=== PATIENT | male | born 1990 | race African-American/Black ===

== ENCOUNTER 2018-10-28 16:20 | Emergency (ER) | payer SELFPAY ==
[2018-10-28] MEDS ORDERED: Sodium Chloride 0.9% 2.5 ML Syringe FLUSH PRN (16:37)
[2018-10-28] MEDS ORDERED: Sodium Chloride 0.9% 10 ML Syringe FLUSH PRN (16:37)
[2018-10-28] MEDS ORDERED: Midazolam 1 MG/ML 2 ML SDV ONE (16:38)
[2018-10-28] MEDS ORDERED: fentaNYL 100 MCG/2 ML SDV ONE (16:38)
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
[2018-10-28] MEDS ORDERED: Lidocaine 1% with EPINEPHrine 1:100,000 20 ML MDV ONE (16:43)
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
--- NOTE | 2018-10-28 17:03 | PCM.PREANE ---
Preanesthetic Assessment - Anesthesia/Transfusion/Family Hx Anesthesia History: Prior Anesthesia Without Reaction Transfusion History: No Prior Transfusion(s) - Review of Systems General: No Symptoms Pulmonary: Shortness of Breath Cardiovascular: No Symptoms Gastrointestinal: No Symptoms Neurological: No Symptoms Other: Reports: Anxiety - Physical Assessment NPO Status Date: 10/28/18 NPO Status Time: 15:30 ASA Class: 2E Mental Status: Alert & Oriented x3 Airway Class: Mallampati = 1 Dentition: Reports: Normal Dentition Thyro-Mental Finger Breadths: 3 Mouth Opening Finger Breadths: 3 ROM/Head Extension: Full Lungs: Clear to Auscultation, Normal Respiratory Effort Cardiovascular: Regular Rate, Regular Rhythm - Allergies Allergies/Adverse Reactions: Allergies Allergy/AdvReac Type Severity Reaction Status Date / Time No Known Allergies Allergy Verified 08/03/18 13:55 - Acknowledgements Anesthesia Type Planned: MAC Pt an Appropriate Candidate for the Planned Anesthesia: Yes Alternatives and Risks of Anesthesia Discussed w Pt/Guardian: Yes Pt/Guardian Understands and Agrees with Anesthesia Plan: Yes PreAnesthesia Questionnaire HEENT History: Reports: None Cardiovascular History: Reports: None Respiratory History: Reports: Other (See Below) (Smoker) Gastrointestinal History: Reports: None Genitourinary History: Reports: None Musculoskeletal History: Reports: None Neurological History: Reports: None Psychiatric History: Reports: None Endocrine/Metabolic History: Reports: None Hematologic History: Reports: None Dermatologic History: Reports: None - Infectious Disease History Infectious Disease History: Reports: Chicken Pox - Past Surgical History HEENT Surgical History: Reports: None Cardiovascular Surgical History: Reports: None - SUBSTANCE USE Smoking Status *Q: Current Every Day Smoker Recreational Drug Type: Reports: Cocaine (Last use 10/27/18), Marijuana/Hashish ( Last use 10/28/18) - HOME MEDS Home Medications: Home Meds . [No Known Home Meds] 07/29/16 [History] - CURRENT (IN HOUSE) MEDS Current Meds: Current Medications Sodium Chloride (Saline Flush) 10 ml FLUSH ASDIRECTED PRN PRN Reason: Keep Vein Open Sodium Chloride (Saline Flush) 2.5 ml FLUSH ASDIRECTED PRN PRN Reason: Keep Vein Open Discontinued Medications Fentanyl (Sublimaze) Confirm Administered Dose 200 mcg .ROUTE .STK-MED ONE Stop: 10/28/18 16:39 Lidocaine/Epinephrine (Xylocaine 1% With Epinephrine 1:100,000) Confirm Administered Dose 40 ml .ROUTE .STK-MED ONE Stop: 10/28/18 16:44 Midazolam HCl (Versed 1 Mg/Ml) Confirm Administered Dose 2 mg .ROUTE .STK-MED ONE Stop: 10/28/18 16:39
[2018-10-28] MEDS ORDERED: Bacitracin Oint 1 GM U/D Packet ONE (17:05)
--- NOTE | 2018-10-28 17:05 | PCM.SN ---
- Free Text/Narrative Note: At the bedside with Dr Contreras for chest tube placement. Patient is very agitated and screaming in pain. Brief review of systems; patient asking for relief. Versed 2mg IV Fentanyl 200mcg IV given over the course of the chest tube placement. Vital signs 1637 - 176/94, 69, 98% on NC at 4LPM, RR - 42 1641 - 147/84, 87, 100% on NC at 4LPM, RR 36 1646 - 155/89, 95, 100% on NC at 4LPM, RR 30 1651 - 151/91, 89, 100% on NC at 4LPM, RR 26 1656 - 145/94, 62, 100% on NC at 4LPM, RR 24 1701 - 150/103, 79, 100% on NC at 4LPM, RR 20 Pt tolerated sedation and placement well. VSS at this time, report given to GATE GUARD.
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
[2018-10-28] MEDS ORDERED: ceFAZolin 1 GM Vial IM ONE (18:14)
[2018-10-28] MEDS ORDERED: ceFAZolin 1 GM in Premix Bag 1 BAG IV ONE (18:17)
[2018-10-28] MEDS ORDERED: ceFAZolin 2 GM in Premix Bag 1 BAG IV ONE (18:18)
[2018-10-28] MEDS ORDERED: Sodium Chloride 0.9% 1,000 ML IV SCH (18:45)
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
[2018-10-28 20:01] VITALS: BP 136/91
[2018-10-28] MEDS ORDERED: Bacitracin Oint 28.35 GM Tube TOP SCH (22:00)
== END 2018-10-28 18:46 ==
LOC: MW.ED 16:20
DX: S21.311A Laceration without foreign body of right front wall of thorax with penetration into thoracic cavity, initial encounter (principal); J93.9 Pneumothorax, unspecified; X58.XXXA Exposure to other specified factors, initial encounter
CPT/HCPCS: 32551; 71045; 96374; 99291; 99292; G0390; J0690; J7040

== ENCOUNTER 2018-11-02 22:44 | Observation (INO) | payer MEDICAID ==
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
--- NOTE | 2018-11-02 23:44 | CR ---
INDICATION: Chest pressure TECHNIQUE: Chest 2 views. COMPARISON: October 28, 2018 FINDINGS: Interval removal of right-sided chest tube. There is no pneumothorax or pleural fluid. Lungs are clear. Normal cardiomediastinal silhouette. No acute osseous abnormality. IMPRESSION: No sign of acute abnormality. Dictated by Deidra Chery MD @ Nov 02 2018 11:44PM Signed by Dr. Deidra Chery @ Nov 02 2018 11:44PM
[2018-11-02] MEDS ORDERED: Sodium Chloride 0.9% 1,000 ML IV SCH (23:45)
--- NOTE | 2018-11-02 23:49 | CR ---
Indication: Chest pressure, recent pneumothorax Technique: Chest 1 view, expiratory view Comparison: Correlation with frontal chest radiograph performed in inspiration at the same time Findings/Impression: There is a moderate-sized right pneumothorax without mediastinal shift. Remainder of the exam is unchanged. These findings were discussed with Dr. Reis at 11:45 p.m. on November 02, 2018. Dictated by Deidra Chery MD @ Nov 02 2018 11:46PM Signed by Dr. Deidra Chery @ Nov 02 2018 11:46PM
[2018-11-02] MEDS ORDERED: LORazepam 2 MG/ML SDV IVPUSH ONE (23:51)
[2018-11-03] MEDS: Sodium Chloride 0.9% 1,000 ML IV SCH ×2 (00:08→08:00)
[2018-11-03] MEDS ORDERED: Sodium Chloride 0.9% 2.5 ML Syringe FLUSH PRN (00:15)
[2018-11-03] MEDS ORDERED: HYDROmorphone 2 MG/ML SDV IVPUSH PRN (00:15)
[2018-11-03] MEDS ORDERED: Sodium Chloride 0.9% 10 ML Syringe FLUSH PRN (00:15)
[2018-11-03] MEDS ORDERED: Sodium Chloride 0.9% 1,000 ML IV SCH (00:15)
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
[2018-11-03] MEDS ORDERED: Ondansetron 4 MG/2 ML SDV IVPUSH PRN (00:35)
[2018-11-03] MEDS ORDERED: HYDROmorphone 1 MG/ML Syringe ONE (01:18)
[2018-11-03] MEDS: HYDROmorphone 1 MG/ML Syringe IVPUSH PRN ×2 (01:41→09:31)
--- NOTE | 2018-11-03 08:08 | CR ---
INDICATION: Follow-up pneumothorax. COMPARISON: PA expiration chest dated 11/02/2018. TECHNIQUE: Portable AP erect chest performed at 7:30 a.m.. FINDINGS: The lungs are clear. There has been resolution of the small right-sided pneumothorax. The heart, mediastinum and pulmonary vessels are of normal size. There is no evidence of pleural fluid. IMPRESSION: Resolution of right-sided pneumothorax. Dictated by Sudhakar Pimentel MD @ Nov 03 2018 8:07AM Signed by Dr. Sudhakar Pimentel @ Nov 03 2018 8:07AM
--- NOTE | 2018-11-03 09:28 | CT ---
EXAMINATION: CT chest without contrast HISTORY: Recurrent pneumothorax COMPARISON: Chest radiograph from the same day TECHNIQUE: Axial CT imaging obtained through the chest without contrast. Coronal and sagittal reconstructions obtained. FINDINGS: There is a small right sided pneumothorax. Mild atelectasis noted within the lung bases. Otherwise the lungs are clear without focal consolidation. Tiny intrafissural nodule along the medial aspect of the right minor fissure. The heart is normal in size without a pericardial effusion. No mediastinal or axillary lymphadenopathy. No hilar fullness. No visualized bulla or emphysematous changes. Central airways are clear. Thoracic aorta is normal caliber. The visualized images of the upper abdomen appear normal. No suspicious osseous abnormalities identified. IMPRESSION: 1. Small right pneumothorax.
--- NOTE | 2018-11-03 09:40 | PCM.PN ---
- General Info Date of Service: 11/03/18 Functional Status: Reports: Pain Controlled, Other (No new chest pain, SOB, and vitals stable overnight. ) - Review of Systems General: Reports: No Symptoms HEENT: Reports: No Symptoms Pulmonary: Reports: No Symptoms Cardiovascular: Reports: No Symptoms Gastrointestinal: Reports: No Symptoms Genitourinary: Reports: No Symptoms Musculoskeletal: Reports: No Symptoms - Patient Data Vitals - Most Recent: Last Vital Signs Temp 35.9 C 11/03/18 04:00 Pulse 77 11/03/18 04:00 Resp 18 11/03/18 04:00 BP 125/62 11/03/18 04:00 Pulse Ox 100 11/03/18 04:00 Weight - Most Recent: 86 kg Med Orders - Current: Current Medications Hydromorphone HCl (Dilaudid) 0.5 mg IVPUSH Q1H PRN PRN Reason: Pain Last Admin: 11/03/18 09:31 Dose: 0.5 mg Sodium Chloride (Normal Saline) 1,000 mls @ 125 mls/hr IV ASDIRECTED [facility] Last Admin: 11/03/18 08:00 Dose: 125 mls/hr Sodium Chloride (Normal Saline) 1,000 mls @ 125 mls/hr IV ASDIRECTED [facility] Ondansetron HCl (Zofran) 4 mg IVPUSH Q6H PRN PRN Reason: Nausea/Vomiting Sodium Chloride (Saline Flush) 10 ml FLUSH ASDIRECTED PRN PRN Reason: Keep Vein Open Sodium Chloride (Saline Flush) 2.5 ml FLUSH ASDIRECTED PRN PRN Reason: Keep Vein Open Last Admin: 11/03/18 09:35 Dose: 2.5 ml Discontinued Medications Hydromorphone HCl (Dilaudid) 0.5 mg IVPUSH Q1H PRN PRN Reason: Pain (severe 7-10) Hydromorphone HCl (Dilaudid) Confirm Administered Dose 1 mg .ROUTE .STK-MED ONE Stop: 11/03/18 01:19 Last Admin: 11/03/18 01:41 Dose: Not Given Sodium Chloride (Normal Saline) 1,000 mls @ 999 mls/hr IV ASDIRECTED IRENE Stop: 11/03/18 00:04 Lorazepam (Ativan) 1 mg IVPUSH ONETIME ONE Stop: 11/02/18 23:52 Last Admin: 11/03/18 00:04 Dose: 1 mg - Exam Quality Assessment: Supplemental Oxygen General: Alert, Oriented HEENT: Pupils Equal, Pupils Reactive Neck: Supple Lungs: Normal Respiratory Effort, Other (mild crackles throughout the right side ) Cardiovascular: Regular Rate, Regular Rhythm - Problem List & Annotations (1) Pneumothorax SNOMED Code(s): 17621392 Code(s): J93.9 - PNEUMOTHORAX, UNSPECIFIED Status: Acute Current Visit: No - Problem List Review Problem List Initiated/Reviewed/Updated: Yes - My Orders Last 24 Hours: My Active Orders 11/03/18 Chest Special 1V [CR] Routine 11/03/18 00:15 Patient Status [ADT] Routine Notify Provider Vital Signs [RC] .PRN Oxygen Therapy [RC] PRN Up ad Elke [RC] ASDIRECTED Vital Signs [RC] Q4H Sodium Chloride 0.9% [Normal Saline] 1,000 ml IV ASDIRECTED Sodium Chloride 0.9% [Saline Flush] 10 ml FLUSH ASDIRECTED PRN Sodium Chloride 0.9% [Saline Flush] 2.5 ml FLUSH ASDIRECTED PRN Peripheral IV Insertion Adult [OM.PC] Urgent Resuscitation Status Routine 11/03/18 00:20 Cardiac Monitoring [RC] Q8H Overnight Pulse Oximetry [RC] Click to Edit Telemetry Monitoring [Cardiac Monitoring] [RC] . DIRECTED Pulse Oximetry Continuous Monitoring [OM.PC] Routine 11/03/18 00:23 Communication Order [RC] DAILY 11/03/18 00:35 Ondansetron [Zofran] 4 mg IVPUSH Q6H PRN 11/03/18 01:27 HYDROmorphone [Dilaudid] 0.5 mg IVPUSH Q1H PRN 11/03/18 Breakfast NPO Now [Nothing per Oral Now Diet] [DIET] - Plan Plan:: The patient had a CXR this morning that showed complete resolution of the pneumothorax but I thought I could still see an apical pneumothorax. A chest CT was doen that shows a small right apical pneumothorax. It appears to be smaller than what I saw on CXR last evening. Will keep on non-rebreather today. Patient can eat, drink regular diet. He should be on satellite project site monitor and pulse ox for the day at least to make sure he continues to stay stable. Will reassess tonight. Likely home tomorrow morning if stable.
[2018-11-03] MEDS: Acetaminophen/HYDROcodone 325-5 MG Tab PO PRN ×2 (13:31→19:39)
--- NOTE | 2018-11-04 08:36 | CR ---
EXAMINATION: Portable chest radiograph. HISTORY: Pneumothorax. FINDINGS: The trachea is midline. The cardiomediastinal silhouette is within normal limits. No significant residual pneumothorax is noted. The lungs are otherwise clear. No pleural effusion. Osseous structures appear unremarkable. IMPRESSION: No significant residual pneumothorax identified on this portable radiograph.
[2018-11-04 08:57] VITALS: BP 115/65
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
--- NOTE | 2018-11-04 15:32 | CR ---
INDICATION: Evaluate pneumothorax COMPARISON: PA inspiratory chest performed at 7:30 a.m. and portable chest dated 11/02/2018 at 10:54 p.m. TECHNIQUE: Portable AP erect chest performed during expiration at 7:31 a.m. FINDINGS: On expiration there is evidence of a small right apical pneumothorax which was not apparent on the inspiration view. The visceral pleural line parallels the posterior right 4th rib. The size of the pneumothorax has decreased from the exam performed 1 day prior on 11/02/2018. The lungs are clear. The heart, mediastinum and pulmonary vessels are of normal size. There is no evidence of pleural fluid. IMPRESSION: Slight reduction in size of the right apical pneumothorax which is apparent on the expiratory view. Dictated by Sudhakar Pimentel MD @ Nov 03 2018 8:07AM Signed by Dr. Sudhakar Pimentel @ Nov 04 2018 3:31PM
== END 2018-11-04 10:45 | disposition home or self-care (01) ==
LOC: MW.ED 22:44 → MW.MS 23:51
PROVIDERS: ADMIT Surgery; ATTEND Surgery
DX: S27.0XXA Traumatic pneumothorax, initial encounter (principal); F17.200 Nicotine dependence, unspecified, uncomplicated; W22.8XXA Striking against or struck by other objects, initial encounter
CPT/HCPCS: 71045; 71250; 96361; 96374; 96375; 96376; 99285; A9270; G0378; J1170; J2060; J7040; 99283

== ENCOUNTER 2019-07-11 03:15 | Emergency (ER) | payer MEDICAID, OTHER ==
[2019-07-11] MEDS ORDERED: Etomidate 2 MG/ML 20 ML SDV IVPUSH ONE (03:27)
[2019-07-11] MEDS ORDERED: Rocuronium 100 MG/10 ML MDV IVPUSH ONE (03:27)
[2019-07-11] MEDS ORDERED: Sodium Chloride 0.9% 10 ML Syringe FLUSH ONE (03:27)
[2019-07-11] MEDS ORDERED: Succinylcholine 200 MG/10 ML MDV IV ONE (03:27)
[2019-07-11] MEDS ORDERED: cefTRIAXone 1 GM in Premix Bag 1 BAG IV ONE (03:33)
[2019-07-11] MEDS ORDERED: Diphtheria,Pertussis(Acell),Tetanus Vaccine 0.5 ML Syringe IM ONE (03:33)
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
[2019-07-11] MEDS ORDERED: Sodium Chloride 0.9% 1,000 ML IV SCH (03:45)
[2019-07-11] MEDS ORDERED: Pantoprazole 40 MG in Sodium Chloride 0.9% 10 ML IV SCH (03:45)
[2019-07-11] MEDS ORDERED: fentaNYL 100 MCG/2 ML SDV ONE (03:47)
[2019-07-11] MEDS: Tranexamic Acid 1,000 MG in Sodium Chloride 0.9% 100 ML IV ONE ×2 (03:58→07:15)
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
[2019-07-11 04:18] LABS: BLOOD UREA NITROGEN,BUN 12 mg/dL (7.0-18.0); CARBON DIOXIDE,CO2 21.8 mmol/L (21.0-32.0); CHLORIDE,CL 102 mmol/L (98-107); GLUCOSE RANDOM 171 mg/dL (74-106); POTASSIUM,K 2.8 mmol/L (3.5-5.1); SODIUM,NA 141 mmol/L (136-148)
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
[2019-07-11] MEDS ORDERED: fentaNYL 50 MCG/ML SDV IVPUSH ONE ×2 (05:45→05:50)
[2019-07-11 06:55] VITALS: BP 60/34; PULSE 72
[2019-07-11] MEDS ORDERED: Lactated Ringers 1,000 ML IV ONE (07:23)
--- NOTE | 2019-07-12 12:14 | CR ---
INDICATION: Intubation TECHNIQUE: Chest 1 views COMPARISON: Chest x-ray 07/11/2019 FINDINGS: Cardiovascular and mediastinum: Heart size and vasculature are normal in caliber and appearance. Lungs and pleural spaces: Lungs are clear. No sign of infiltrate or mass. No sign of pleural effusion. No pneumothorax. Bones and soft tissues: Endotracheal tube at the midtrachea level. IMPRESSION: Interval intubation with endotracheal tube tip at the midtrachea level. Dictated by Rafi Quintanilla MD @ Jul 11 2019 3:56AM Signed by: Rafi Quintanilla MD @07/11/2019 3:57:43 AM (Electronic Signature) [facility]
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
== END 2019-07-11 04:41 ==
LOC: MW.ED 03:26
DX: S41.012A Laceration without foreign body of left shoulder, initial encounter (principal); S01.21XA Laceration without foreign body of nose, initial encounter; S01.412A Laceration without foreign body of left cheek and temporomandibular area, initial encounter; S41.111A Laceration without foreign body of right upper arm, initial encounter; R57.9 Shock, unspecified; Z23 Encounter for immunization; W26.0XXA Contact with knife, initial encounter; Y92.89 Other specified places as the place of occurrence of the external cause
CPT/HCPCS: 31500; 36415; 36430; 51702; 71045; 80053; 80305; 80320; 81001; 85025; 86850; 86900; 86901; 86920; 86921; 86922; 90471; 90715; 93005; 96361; 96374; 99291; 99292; C9113; J0330; J0696; J2704; J3010; J3490; J7030; J7040; J7050; J7120; P9016; G0480

== ENCOUNTER 2019-07-23 09:12 | Emergency (ER) | payer SELFPAY ==
[2019-07-23 09:30] VITALS: BP 139/78; PULSE 94
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
== END 2019-07-23 10:21 | disposition home or self-care (01) ==
LOC: MW.ED 09:12
DX: S41.111D Laceration without foreign body of right upper arm, subsequent encounter (principal); W45.8XXD Other foreign body or object entering through skin, subsequent encounter
CPT/HCPCS: 99282

== ENCOUNTER 2019-08-06 14:00 | Emergency (ER) | payer SELFPAY ==
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
[2019-08-06 16:15] VITALS: BP 120/78; PULSE 89
== END 2019-08-06 16:00 | disposition home or self-care (01) ==
LOC: MW.ED 14:00
DX: Z48.817 Encounter for surgical aftercare following surgery on the skin and subcutaneous tissue (principal); F17.210 Nicotine dependence, cigarettes, uncomplicated
CPT/HCPCS: 99281

== ENCOUNTER 2019-10-21 09:05 | Emergency (ER) | payer SELFPAY ==
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
[2019-10-21 09:46] VITALS: BP 123/80; PULSE 82
== END 2019-10-21 09:45 | disposition home or self-care (01) ==
LOC: MW.ED 09:05
DX: Z00.00 Encounter for general adult medical examination without abnormal findings (principal)
CPT/HCPCS: 99282

== ENCOUNTER 2020-03-16 01:58 | Emergency (ER) | payer SELFPAY ==
[2020-03-16 02:13] VITALS: BP 135/84; PULSE 96
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
== END 2020-03-16 02:20 ==
LOC: MW.ED 01:58
DX: G89.29 Other chronic pain (principal); M79.621 Pain in right upper arm
CPT/HCPCS: 99283

== ENCOUNTER 2020-05-03 21:36 | Emergency (ER) | payer SELFPAY ==
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
[2020-05-03 21:48] VITALS: BP 121/79; PULSE 86
== END 2020-05-03 21:55 ==
LOC: MW.ED 21:36
DX: Z02.89 Encounter for other administrative examinations (principal)
CPT/HCPCS: 99282; 99283

== ENCOUNTER 2020-10-18 16:23 | Emergency (ER) | payer MEDICAID ==
[2020-10-18 16:37] VITALS: BP 127/80; PULSE 72
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
--- NOTE | 2020-10-18 17:58 | CR ---
Indication: Hand pain Technique: Four views of the right hand Comparison: None Findings/Impression: 1. There is fracture deformity of the distal left 5th metacarpal, with volar angulation of the metacarpal head. 2. The bones are somewhat demineralized, suggesting osteopenia. Dictated by Luz Fam MD @ Oct 18 2020 5:53PM Signed by Dr. uLz Fam @ Oct 18 2020 5:58PM
== END 2020-10-18 17:20 | disposition home or self-care (01) ==
LOC: MW.ED 16:23
DX: S62.336A Displaced fracture of neck of fifth metacarpal bone, right hand, initial encounter for closed fracture (principal); Y04.0XXA Assault by unarmed brawl or fight, initial encounter
CPT/HCPCS: 29125; 29126; 73130-26-RT; 73130-RT; 99283; 99283-25

== ENCOUNTER 2020-12-03 07:42 | Emergency (ER) | payer MEDICAID ==
[2020-12-03] MEDS ORDERED: Benzocaine 20% Topical Spray UD MUCMEM ONE (08:18)
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
[2020-12-03] MEDS ORDERED: Lidocaine 2% Viscous Solution 15 ML Cup PO ONE (08:36)
[2020-12-03 08:56] VITALS: BP 122/54; PULSE 95
== END 2020-12-03 08:57 | disposition home or self-care (01) ==
LOC: MW.ED 07:42
DX: K08.89 Other specified disorders of teeth and supporting structures (principal); Z87.891 Personal history of nicotine dependence
CPT/HCPCS: 99282; A9270

== ENCOUNTER 2021-02-17 13:06 | Emergency (ER) | payer SELFPAY ==
[2021-02-17] MEDS ORDERED: Cephalexin 500 MG Cap PO ONE (13:31)
[2021-02-17] MEDS ORDERED: traMADol 50 MG Tab PO ONE (13:31)
[2021-02-17 13:32] VITALS: BP 134/76; PULSE 70
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
== END 2021-02-17 13:47 | disposition home or self-care (01) ==
LOC: MW.ED 13:06
DX: K04.7 Periapical abscess without sinus (principal); K02.9 Dental caries, unspecified
CPT/HCPCS: 99282; A9270; 99283

== ENCOUNTER 2021-03-02 20:39 | Emergency (ER) | payer SELFPAY ==
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
[2021-03-02 21:09] VITALS: BP 127/84; PULSE 96
== END 2021-03-02 21:07 | disposition home or self-care (01) ==
LOC: MW.ED 20:39
DX: Z02.89 Encounter for other administrative examinations (principal)
CPT/HCPCS: 82947; 99283

== ENCOUNTER 2021-07-30 01:32 | Emergency (ER) | payer SELFPAY ==
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
[2021-07-30 02:58] VITALS: BP 112/84; PULSE 96
== END 2021-07-30 03:04 | disposition home or self-care (01) ==
LOC: MW.ED 01:32
DX: S02.2XXA Fracture of nasal bones, initial encounter for closed fracture (principal); S10.97XA Other superficial bite of unspecified part of neck, initial encounter; S01.512A Laceration without foreign body of oral cavity, initial encounter; Y04.2XXA Assault by strike against or bumped into by another person, initial encounter; Y04.1XXA Assault by human bite, initial encounter; Y92.009 Unspecified place in unspecified non-institutional (private) residence as the place of occurrence of the external cause
CPT/HCPCS: 70450; 70450-26; 70486; 70486-26; 99284-25

== ENCOUNTER 2021-08-29 14:16 | Emergency (ER) | payer SELFPAY ==
[2021-08-29 14:21] VITALS: BP 149/91
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
[2021-08-29 15:49] VITALS: PULSE 77
== END 2021-08-29 15:51 ==
LOC: MW.ED 14:16
DX: Z02.89 Encounter for other administrative examinations (principal)
CPT/HCPCS: 99283

== ENCOUNTER 2022-05-30 09:47 | Emergency (ER) | payer SELFPAY | END 2022-05-30 12:56 | disposition left against medical advice (07) | LOC: MW.ED 09:47 | DX: Z53.21 Procedure and treatment not carried out due to patient leaving prior to being seen by health care provider (principal) ==

== ENCOUNTER 2022-07-09 22:25 | Emergency (ER) | payer OTHER ==
[2022-07-09 22:42] VITALS: BP 135/70; PULSE 79
== END 2022-07-10 00:43 | disposition home or self-care (01) ==
LOC: MW.ED 22:25
DX: S00.83XA Contusion of other part of head, initial encounter (principal); W01.10XA Fall on same level from slipping, tripping and stumbling with subsequent striking against unspecified object, initial encounter
CPT/HCPCS: 70450; 70450-26; 70486; 70486-26; 72125; 72125-26; 99284

== ENCOUNTER 2022-08-26 10:27 | Emergency (ER) | payer SELFPAY ==
[2022-08-26 10:37] VITALS: BP 116/80; PULSE 85
[2022-08-26] MEDS ORDERED: Bacitracin Oint 1 GM U/D Packet TOP ONE (10:38)
[2022-08-26] MEDS ORDERED: Amoxicillin/Clavulanate K 875-125 MG Tab PO ONE (10:38)
[2022-08-26 12:06] LABS: CARBON DIOXIDE,CO2 28.6 mmol/L (21.0-32.0); POTASSIUM,K 3.5 mmol/L (3.5-5.1)
== END 2022-08-26 12:28 | disposition home or self-care (01) ==
LOC: MW.ED 10:27
DX: S61.452A Open bite of left hand, initial encounter (principal); L03.114 Cellulitis of left upper limb; W50.3XXA Accidental bite by another person, initial encounter
CPT/HCPCS: 36415; 73130; 80053; 83605; 85025; 87040; 99283; A9270

== ENCOUNTER 2024-07-14 08:07 | Day surgery (SDC) | payer SELFPAY ==
[~2024-07-14 08:07] MED LIST: Albuterol 0.083% 2.5 MG/3 ML Neb Soln NEB PRN; Metoclopramide 10 MG/2 ML SDV IVPUSH PRN; Morphine 2 MG/ML SYRINGE IVPUSH PRN; Naloxone 0.4 MG/ML SDV IVPUSH PRN; Ondansetron 4 MG/2 ML SDV IVPUSH PRN; Phenylephrine HCl In 0.9% NaCl 1 MG/10 ML Syringe IVPUSH PRN; ceFAZolin 2 GM in Sodium Chloride 0.9% 50 ML IV ONE
[2024-07-14] MEDS ORDERED: Dexamethasone 4 MG/ML 5 ML MDV IVPUSH ONE (08:08)
[2024-07-14] MEDS: Lactated Ringers 1,000 ML IV SCH (08:55)
[2024-07-14] MEDS ORDERED: Ondansetron 4 MG/2 ML SDV ONE (10:58)
[2024-07-14] MEDS ORDERED: Lidocaine 2% 5 ML SDV ONE (10:58)
[2024-07-14] MEDS ORDERED: Propofol 200 MG/20 ML SDV ONE ×2 (10:58→11:51)
[2024-07-14] MEDS ORDERED: fentaNYL 100 MCG/2 ML SDV ONE (11:01)
[2024-07-14] MEDS ORDERED: ceFAZolin 1 GM Vial ONE (11:43)
[2024-07-14] MEDS: HYDROmorphone 1 MG/ML Syringe IVPUSH PRN (12:59)
[2024-07-14] MEDS: fentaNYL 50 MCG/ML SDV IVPUSH PRN (13:03)
[2024-07-14 15:12] VITALS: BP 163/85; PULSE 58
== END 2024-07-14 14:00 | disposition home or self-care (01) ==
LOC: MW.SDS 08:07
PROVIDERS: ATTEND Orthopaedic Surgery
DX: S62.324A Displaced fracture of shaft of fourth metacarpal bone, right hand, initial encounter for closed fracture (principal); F17.200 Nicotine dependence, unspecified, uncomplicated; F41.9 Anxiety disorder, unspecified; F32.A Depression, unspecified; Z79.899 Other long term (current) drug therapy; X58.XXXA Exposure to other specified factors, initial encounter
CPT/HCPCS: 26608; 76000; J0690; J1100; J1171; J2405; J2704; J3010; J7120; 01820; J3490

== ENCOUNTER 2024-12-19 10:13 | Emergency (ER) | payer SELFPAY ==
[2024-12-19 11:34] LABS: APPEARANCE,URINE CLEAR; GLUCOSE,URINE NEGATIVE (NEGATIVE); KETONES,URINE TRACE mg/dL (NEGATIVE); LEUKOCYTE ESTERASE,URINE NEGATIVE (NEGATIVE); NITRITE,URINE NEGATIVE (NEGATIVE); OCCULT BLOOD,URINE NEGATIVE (NEGATIVE); PROTEIN,URINE 30 mg/dL (NEGATIVE)
[2024-12-19 11:40] LABS: BILIRUBIN,URINE SMALL (NEGATIVE); COLOR,URINE DARK YELLOW
[2024-12-19 11:46] LABS: BACTERIA,URINE NOT SEEN (NEGATIVE); EPITHELIAL CELLS,URINE RARE (NONE-FEW); MUCUS,URINE HEAVY (NONE-MOD); RBC,URINE 0-2 (0-2/HPF); SPERM,URINE OCCASIONAL (NEGATIVE); WBC,URINE 0-2 (0-5/HPF)
[2024-12-19 12:33] LABS: C. TRACHOMATIS BY PCR NOT DETECTED; N. GONORRHOEAE BY PCR NOT DETECTED
[2024-12-19 13:46] VITALS: BP 145/94; PULSE 84
== END 2024-12-19 13:46 | disposition home or self-care (01) ==
LOC: MW.ED 10:13
DX: K04.7 Periapical abscess without sinus (principal); Z11.3 Encounter for screening for infections with a predominantly sexual mode of transmission; Z75.8 Other problems related to medical facilities and other health care
CPT/HCPCS: 81001; 87491; 87591; 99283

== ENCOUNTER 2025-05-13 09:07 | Emergency (ER) | payer SELFPAY ==
[2025-05-13 09:22] VITALS: BP 149/88; PULSE 93
== END 2025-05-13 09:41 | disposition home or self-care (01) ==
LOC: MW.ED 09:07
DX: S61.211D Laceration without foreign body of left index finger without damage to nail, subsequent encounter (principal); S61.212D Laceration without foreign body of right middle finger without damage to nail, subsequent encounter; X58.XXXD Exposure to other specified factors, subsequent encounter; Z79.899 Other long term (current) drug therapy
CPT/HCPCS: 99282